=== PATIENT | male | born 1960 | race Caucasian/White ===

== ENCOUNTER → 2024-02-24 06:34 | Outpatient (REF) | payer BC, SELFPAY ==
[2024-02-24 13:40] LABS: Free T4 0.74 ng/dl (0.78-2.19)
== END ==
LOC: REG 06:34
PROVIDERS: FAMILY PHYSICIAN Family Medicine
DX: Z92.3 Personal history of irradiation (principal)
CPT/HCPCS: 36415; 84439

== ENCOUNTER → 2024-04-23 16:39 | Outpatient (REF) | payer BC, SELFPAY ==
[2024-04-23 18:22] LABS: TSH 4.09 uIU/ml (0.47-4.68)
== END ==
LOC: REG 16:39
PROVIDERS: ATTENDING PHYSICIAN Otolaryngology; FAMILY PHYSICIAN Family Medicine
DX: Z92.3 Personal history of irradiation (principal)
CPT/HCPCS: 36415; 84443

== ENCOUNTER 2024-08-11 16:30 | Emergency (ER) | payer BC, SELFPAY ==
[2024-08-11 16:34] VITALS: BP 162/106
[2024-08-11 17:02] LABS: % Basophils 0.6 % (0-2); % Eosinophils 1.5 % (0-6); % Immature Granulocytes 0.1 % (0-0.5); % Lymphocytes 8.4 % (20.5-51.1); % Monocytes 6.9 % (1.7-9.3); % Neutrophils 82.5 % (42.2-75.2); Absolute Basophils 0.1 10^3/uL (0-0.2); Absolute Eosinophils 0.1 10^3/uL (0-0.7); Absolute Lymphocytes 0.7 10^3/uL (1.2-3.4); Absolute Monocytes 0.6 10^3/uL (0.1-0.6); Absolute Neutrophils 7.1 10^3/uL (1.4-6.5); Hematocrit 38.5 % (39.0-52.0); Hemoglobin 13.9 g/dL (13.0-18.0); Mean Corp Hgb Conc. 36.1 g/dL (33.0-37.0); Mean Corpuscular Hgb 31.7 pg (27.0-31.0); Mean Corpuscular Volume 87.9 fL (80.0-94.0); Mean Platelet Volume 10.1 fL (7.4-10.4); Nucleated Red Blood Cells % 0 % (-); Platelet Count 184 10^3/uL (130-400); Red Blood Cell Count 4.38 10^6/uL (4.70-6.10); Red Cell Dist. Width 11.9 % (11.5-14.5); White Blood Cell Count 8.6 10^3/uL (4.8-10.8)
[2024-08-11 17:21] LABS: ALT (SGPT) 21 U/L (0-50); AST (SGOT) 31 U/L (17-59); Albumin 4.5 g/dl (3.5-5.0); Alkaline Phosphatase 111 U/L (38-126); Blood Urea Nitrogen 22 mg/dl (9-20); Calcium 9.4 mg/dl (8.4-10.2); Carbon Dioxide 28 mmol/L (22-30); Chloride 105 mmol/L (98-107); Glucose 107 mg/dl (70-99); Potassium 3.9 mmol/L (3.5-5.1); Sodium 139 mmol/L (135-145); Total Bilirubin 0.6 mg/dl (0.2-1.3); eGFR > 60.00
[2024-08-11 17:23] LABS: Troponin I < 0.012 ng/ml
[2024-08-11 18:13] VITALS: BP 144/98
[2024-08-11 18:17] VITALS: BMI 28.4
[2024-08-11 19:00] VITALS: BP 158/98
--- NOTE | 2024-08-11 19:16 | ED.GENMED ---
History of Present Illness
General
Chief Complaint: Change in Mental Status
Source: patient and spouse
Exam Limitations: none
Time Seen by Provider: 08/11/24 18:53
History of Present Illness
History of Present Illness:
63yoM with a history of head and neck cancer 2 years ago currently in remission presenting with his for evaluation after an 'aura' that he experienced around 1:30 this afternoon while driving. He states he suddenly felt disoriented and not
himself. He was able to pull off to the side of the road. Symptoms lasted about 30 to 60 seconds before resolving. He felt slightly off afterwards. He denies any dizziness, visual changes, headache, chest pain, palpitations, shortness of breath.
Symptoms have completely resolved and he is asymptomatic at this time. He believes he may be dehydrated because he was drinking alcohol yesterday evening.
Past History
Past History
ED Past Medical History: None
ED Past Surgical History: None
Phy Exam
General Physical Exam
General Presentation: well appearing and no apparent distress
General age: appears stated age
General Skin: warm and dry
General Habitus: normal
General Mental: alert
ENT Exam
ENT Exam: normocephalic
Cardiovascular Exam
Cardiovascular Exam: regular rate/rhythm, no edema, no murmur and normal peripheral pulses (2+ radial and DP pulses bilaterally)
Pulmonary Exam
Pulmonary Exam: lungs clear, no respiratory distress, no rales, no crackles and no rhonchi
Neurological Exam
Neurological Exam: alert, CN II-XII intact, no motor deficits, no sensory deficits and speech normal
NIH Stroke Score
Level of Consciousness: 0 - Alert
LOC questions: 0-Answers both correctly
LOC Commands: 0-Performs both correctly
Best Gaze: 0-Normal
Visual Andrade: 0=Normal, no visual loss
Facial palsy: 0=Normal, symmetrical
Motor - Right Arm: 0=No drift 10 seconds
Motor - Left Arm: 0=No drift 10 seconds
Motor - Right Le-No drift 5 seconds
Motor - Left Le-No drift 5 seconds
Limb Ataxia: 0-Absent
Sensation: 0-Normal
Best Language: 0-No aphasia
Dysarthria: 0-Normal
Extinction and Inattention: 0-No abnormality
Total Score:: 0
Lynda Coma Scale
Eye Opening: Spontaneous
Verbal Response: Oriented
Motor Response: Obeys Commands
GCS Total Score: 15
Skin Exam
Skin Exam: normal color and warm/dry
Psychiatric Exam
Psychiatric Exam: normal mood/affect
Course
Orders/Labs/Results
Orders:
Orders
08/11/24 16:42
ECG [Electrocardiogram (*1)] Urgent
Reason for Study: Syncope
EKG- Treatment ONCE
08/11/24 16:51
Complete Blood Count/With Diff Urgent
Comprehensive Metabolic Panel Urgent
Troponin I Urgent
Abnormal Lab Results
08/11/24
16:51
RBC 4.38 L 10^6/uL
(4.70-6.10)
Hct 38.5 L %
(39.0-52.0)
MCH 31.7 H pg
(27.0-31.0)
Absolute Neuts (auto) 7.1 H 10^3/uL
(1.4-6.5)
Absolute Lymphs (auto) 0.7 L 10^3/uL
(1.2-3.4)
Neutrophils % 82.5 H %
(42.2-75.2)
Lymphocytes % 8.4 L %
(20.5-51.1)
BUN 22 H mg/dl
(9-20)
Glucose 107 H mg/dl
(70-99)
08/11/24 16:51
08/11/24 16:51
Vital Signs
Initial and Last Documented VS:
Initial Vital Signs
Temp Pulse Resp BP Pulse Ox
98.7 F 88 16 162/106 98
08/11/24 16:34 08/11/24 16:34 08/11/24 16:34 08/11/24 16:34 08/11/24 16:34
Last Documented Vital Signs
Temp Pulse Resp BP Pulse Ox
98.7 F 82 15 158/98 99
08/11/24 16:34 08/11/24 19:00 08/11/24 19:00 08/11/24 19:00 08/11/24 19:00
MDM/Problems Addressed
Differential Diagnosis Includes:
63yoM here after an 'aura' episode and feeling disoriented 30-60 seconds earlier today. Symptoms resolved and he is asymptomatic on arrival. No headache, visual changes, chest pain, dizziness. He is mildly hypertensive with otherwise normal vital
signs. He is well-appearing in no acute distress. No neurologic deficits appreciated on exam. NIHSS 0. Differential diagnosis includes but is not limited to: Arrhythmia, electrolyte abnormality, dehydration, orthostasis, vasovagal episode, doubt
TIA
Labs and EKG obtained in triage. Labs overall unremarkable including normal electrolytes, renal function, glucose. EKG shows normal sinus rhythm without ischemic changes and troponin within normal limits. Do not feel head CT would be helpful at
this time. Patient in agreement with this. He did have a recent CT head about 4 months ago after a head injury which was reportedly normal. Presentation is nonspecific. No indication for hospitalization at this time. He was advised to follow-up
closely with his PCP and strict ED return precautions discussed. Patient in agreement with plan and was discharged in stable condition.
*EKG
Interpreted by ED Provider?: Yes
EKG Intrepretation Date: 08/11/24
Heart Rate: 85
Rate: normal
Rhythm: sinus
[place]: normal axis
Interval: normal interval
QRS Pattern: normal QRS
Ischemia: no ischemia
*Critical Care Note
Total Time (30-74mins, 75-104mins- exclusive of procedures): Not Applicable
ED Attending Note
-
Portions of this chart may have been created with voice recognition software.� Occasional wrong word or��sound alike� substitutions may have occurred due to the inherent limitations of voice recognition software.
Discharge Plan
Departure
Patient Disposition: Home (Routine Discharge)
Date of Disposition: 08/11/24
Time of Disposition: 19:18
Patient with high blood pressure during this ER visit?: Yes
Discharge Problem:
Transient disorientation
Instructions: Altered Mental Status (DC)
Prescriptions:
No Action
doxycycline hyclate 100 MG capsule
100 mg PO Q12 Qty: 20 0RF
Referrals:
Sean Sweet MD [Family Provider] -
Activity Restrictions/Additional Instructions:
Please call your family doctor on Tuesday to schedule a follow-up appointment. Return to the ER immediately with any new or worsening symptoms.
Interventions
Interventions:
*Risk Screen - Suicide Last Done: 08/11/24 18:17
*General Assessment Last Done: 08/11/24 18:17
*Neglect/Abuse Screening Last Done: 08/11/24 18:17
*ED- Fall Risk Assessment Last Done: 08/11/24 18:17
*ED COVID-19 Vaccine History Last Done: 08/11/24 18:17
*Nursing Disposition Last Done: 08/11/24 19:25
ED- Pulmonary Assessment Last Done: 08/11/24 18:17
ED- Neurological Assessment Last Done: 08/11/24 18:17
ED- Cardiac Assessment Last Done: 08/11/24 18:17
ED Swallowing Screen Last Done: 08/11/24 19:24
Discharge Date and Time
Discharge Date/Time: 08/11/24 19:26
Print Language: CITIZEN OF [place]
== END 2024-08-11 19:26 | disposition home or self-care (01) ==
LOC: EMR 16:30
PROVIDERS: Emergency Medicine; EMERGENCY PHYSICIAN Emergency Medicine; FAMILY PHYSICIAN Family Medicine
DX: R41.0 Disorientation, unspecified (principal); Z85.89 Personal history of malignant neoplasm of other organs and systems
CPT/HCPCS: 99284; 80053; 84484; 85025; 93005

== ENCOUNTER → 2024-08-14 06:24 | Outpatient (REF) | payer BC, SELFPAY ==
[2024-08-14 07:47] LABS: ALT (SGPT) 20 U/L (0-50); AST (SGOT) 27 U/L (17-59); Albumin 4.4 g/dl (3.5-5.0); Alkaline Phosphatase 95 U/L (38-126); Blood Urea Nitrogen 19 mg/dl (9-20); Calcium 9.3 mg/dl (8.4-10.2); Carbon Dioxide 27 mmol/L (22-30); Chloride 105 mmol/L (98-107); Glucose 105 mg/dl (70-99); HDL Cholesterol 73 mg/dl; LDL Cholesterol, Calculated 138 mg/dl; Potassium 4.4 mmol/L (3.5-5.1); Sodium 139 mmol/L (135-145); Total Bilirubin 0.6 mg/dl (0.2-1.3); Total Cholesterol 222 mg/dl (50-199); Triglyceride 56 mg/dl (10-149); Very Low Density Lipoprotein 11 mg/dl (0-30); eGFR > 60.00
[2024-08-14 08:09] LABS: PSA, Total - Screen 5.97 ng/ml (0.0-4.0); TSH Reflex To Free T4 4.46 uIU/ml (0.47-4.68)
[2024-08-14 08:19] LABS: Erythrocyte Sed Rate 7 mm/hour (0-20)
[2024-08-14 08:27] LABS: Hepatitis C Antibody Negative (Negative)
== END ==
LOC: REG 06:24
PROVIDERS: ATTENDING PHYSICIAN Family Medicine
DX: R41.82 Altered mental status, unspecified (principal); Z12.5 Encounter for screening for malignant neoplasm of prostate
CPT/HCPCS: 36415; 80053; 80061; 84443; 85652; 86803; G0103

== ENCOUNTER → 2024-08-17 13:44 | Outpatient (REF) | payer BC, SELFPAY | LOC: HWRAD 13:44 | PROVIDERS: ATTENDING PHYSICIAN Family Medicine | DX: I63.9 Cerebral infarction, unspecified (principal) | CPT/HCPCS: 93880 ==

== ENCOUNTER 2024-08-19 02:29 | Observation (INO) | payer BC, SELFPAY ==
[2024-08-18 22:27] VITALS: BMI 29.1
[2024-08-18 22:29] VITALS: BP 165/107
[2024-08-18 22:44] LABS: Glucose - Point of Care 130 mg/dl (70-99)
[2024-08-18 22:52] LABS: % Basophils 0.7 % (0-2); % Eosinophils 5.7 % (0-6); % Immature Granulocytes 0.2 % (0-0.5); % Lymphocytes 19.9 % (20.5-51.1); % Neutrophils 63.5 % (42.2-75.2); Absolute Eosinophils 0.3 10^3/uL (0-0.7); Absolute Lymphocytes 1.1 10^3/uL (1.2-3.4); Absolute Monocytes 0.5 10^3/uL (0.1-0.6); Absolute Neutrophils 3.4 10^3/uL (1.4-6.5); Hematocrit 39.2 % (39.0-52.0); Hemoglobin 13.7 g/dL (13.0-18.0); Mean Corp Hgb Conc. 34.9 g/dL (33.0-37.0); Mean Corpuscular Hgb 31.4 pg (27.0-31.0); Mean Corpuscular Volume 89.9 fL (80.0-94.0); Nucleated Red Blood Cells % 0 % (-); Platelet Count 179 10^3/uL (130-400); Red Blood Cell Count 4.36 10^6/uL (4.70-6.10); Red Cell Dist. Width 11.9 % (11.5-14.5); White Blood Cell Count 5.4 10^3/uL (4.8-10.8)
[2024-08-18 23:03] LABS: INR 1.01; PT 13.6 Sec (11.4-14.6)
[2024-08-18 23:04] LABS: APTT 29.4 Sec (23.4-35.0)
[2024-08-18 23:06] LABS: ALT (SGPT) 21 U/L (0-50); AST (SGOT) 28 U/L (17-59); Albumin 4.2 g/dl (3.5-5.0); Alkaline Phosphatase 110 U/L (38-126); Blood Urea Nitrogen 17 mg/dl (9-20); Calcium 9.5 mg/dl (8.4-10.2); Carbon Dioxide 30 mmol/L (22-30); Chloride 103 mmol/L (98-107); Estimated Creatinine Clearance 82 ml/min; Glucose 127 mg/dl (70-99); Potassium 3.9 mmol/L (3.5-5.1); Sodium 140 mmol/L (135-145); Total Bilirubin 0.4 mg/dl (0.2-1.3); Total Protein 7.1 g/dl (6.3-8.2); eGFR > 60.00
[2024-08-18 23:15] VITALS: BP 166/105
[2024-08-18 23:16] VITALS: BP 147/99
[2024-08-18 23:18] LABS: Troponin I < 0.012 ng/ml
[2024-08-19] VITALS (8 sets, daily range): BP systolic 127–174; BP diastolic 78–107; PULSE 72–102; BMI 28.5
--- NOTE | 2024-08-19 00:09 | ED.CVA ---
History of Present Illness
<Kelsey Siegel PA-C - Last Filed: 08/19/24 02:48>
General
Chief Complaint: CVA/TIA Symptoms
Source: patient and spouse ( at bedside)
Exam Limitations: none
Time Seen by Provider: 08/18/24 23:31
Nursing documentation reviewed up to this point in time: agreed with
Onset of Stroke Symptoms
Onset of symptoms known: Yes
Date of onset of symptoms: 08/18/24
History of Present Illness
History of Present Illness:
Patient is a 63-year-old male with history SCC of head/neck presenting to the emergency department due to transient numbness in his bilateral upper and lower extremities occurring earlier this evening. Patient states he was sitting down when he had
a gradual onset numbness in his bilateral arms and legs. This lasted about 30 minutes and seemed to resolve on his way to the emergency department. Patient denies any other associated symptoms during this time. At this time�patient states he is
asymptomatic and feels fine.
Patient states that today he was feeling well and denies any confusion, headache, visual disturbances, dysarthria, or ataxia. He denies any recent trauma.
Of note�patient was seen in the ED 1 week ago for transient confusion and discharged. He then had an outpatient MRI this week which showed chronic lacunar infarct in the right basal ganglia. He was started on Plavix and Crestor by his PCP. He had
an carotid ultrasound performed this week and scheduled appointments for cardiac echo as well as cardiology follow-up and neurology follow-up in a few weeks given concern of possible stroke.
Past History
<Kelsey iSegel PA-C - Last Filed: 08/19/24 02:48>
Past History
ED Past Medical History: None
ED Past Surgical History: None
Review of Systems
<Kelsey Siegel PA-C - Last Filed: 08/19/24 02:48>
Review of Systems
Allergies reviewed?: Yes
All Other Systems: ROS reviewed and negative except as documented in HPI and ROS
Phy Exam
<Kelsey Siegel PA-C - Last Filed: 08/19/24 02:48>
Physical Exam
Physical Exam:
Vitals: Hypertensive on arrival, otherwise vital signs stable. Afebrile
General: Patient is well appearing, no acute distress
Skin: Warm and dry, no rashes or lesions
Head: Normocephalic, atraumatic
Eyes: Sclera nonicteric. EOMs intact. Pupils equal round reactive to light bilaterally. No nystagmus.
Throat: Protecting airway
Neck: Normal ROM, no cervical spine tenderness, no meningismus. No JVD
Cardiac: Regular rate and rhythm, no murmurs.
Pulm: Normal respiratory effort, no wheezes, rales, rhonchi heard on exam.
Abdomen: No abdominal tenderness.
Extremities: No evidence of cyanosis or edema. 5 out of 5 strength in bilateral upper and lower extremities.
Neuro: AAOx3. No focal deficits. No facial droop or asymmetry. Fluid speech. Strength intact bilaterally. Sensation appears intact to fine and dull touch.
Psychiatric: Normal affect.
NIH Stroke Score
Level of Consciousness: 0 - Alert
LOC questions: 0-Answers both correctly
LOC Commands: 0-Performs both correctly
Best Gaze: 0-Normal
Visual Andrade: 0=Normal, no visual loss
Facial palsy: 0=Normal, symmetrical
Motor - Right Arm: 0=No drift 10 seconds
Motor - Left Arm: 0=No drift 10 seconds
Motor - Right Le-No drift 5 seconds
Motor - Left Le-No drift 5 seconds
Limb Ataxia: 0-Absent
Sensation: 0-Normal
Best Language: 0-No aphasia
Dysarthria: 0-Normal
Extinction and Inattention: 0-No abnormality
Total Score:: 0
<Adam Henriquez MD - Last Filed: 08/19/24 01:23>
NIH Stroke Score
Total Score:: 0
Course
<Kelsey Siegel PA-C - Last Filed: 08/19/24 02:48>
Orders/Labs/Results
Orders:
Orders
08/18/24 22:34
Electrocardiogram (*1) Urgent
Reason for Study: Other
Other Reason for Exam: Possible Stroke
Bedside Glucose- Treatment ONCE
EKG- Treatment ONCE
08/18/24 22:36
CT Head W/o Iv Contrast Urgent
Comment:
Reason For Exam: numbness, stroke last week
08/18/24 22:42
Complete Blood Count/With Diff Urgent
Comprehensive Metabolic Panel Urgent
PTT Urgent
Prothrombin Time Urgent
Troponin I Urgent
08/19/24 00:32
Aspirin Chewable [Low Strength Aspirin] 324 mg PO NOW STA
08/19/24 02:17
Admit/Transfer Patient As Directed
Co-Sign Provider:
Level of Care: Observation services
Assign to:: Telemetry
Physician / Group: Osman
Diagnosis: Paresthesias
Reason for Telemetry: CVA/TIA
Date to Stop Telemetry: 08/22/24
Time to Stop Telemetry: 11:00
Code Status As Directed
Resuscitation Status: Full Code
PRN Pain Medication Management As Directed
May give lesser potent ordered pain med per pt: Yes
preference::
Protocol:: Medication orders for pain may be administered in a
manner that supports deferring to patient preference
when the pt is:
- Requesting an ordered lesser potent pain medication.
Least to most potent pain medications are defined
as: acetaminophen < NSAID < tramadol < opioids
(morphine, oxycodone, hydromorphone).
- Requesting a lesser dose of the same medication IF
ORDERED.
- Requesting a less intrusive route of administration
if both routes are prescribed by the provider (PO <
IV).
08/19/24 02:24
COVID-19 Antigen Urgent
Source: Nasal Swab
08/22/24 11:00
DC Protocol for Telemetry ONCE
Abnormal Lab Results
08/18/24
22:42
RBC 4.36 L 10^6/uL
(4.70-6.10)
MCH 31.4 H pg
(27.0-31.0)
Absolute Lymphs (auto) 1.1 L 10^3/uL
(1.2-3.4)
Lymphocytes % 19.9 L %
(20.5-51.1)
Monocytes % 10.0 H %
(1.7-9.3)
Glucose 127 H mg/dl
(70-99)
POC Glucose 130 H mg/dl
(70-99)
08/18/24 22:42
08/18/24 22:42
Vital Signs
Initial and Last Documented VS:
Initial Vital Signs
Temp Pulse Resp BP Pulse Ox
97.8 F 92 16 165/107 99
08/18/24 22:29 08/18/24 22:29 08/18/24 22:29 08/18/24 22:29 08/18/24 22:29
Last Documented Vital Signs
Temp Pulse Resp BP Pulse Ox
97.8 F 92 16 165/107 97
08/18/24 22:29 08/18/24 22:29 08/18/24 22:29 08/18/24 22:29 08/18/24 23:25
<Adam Henriquez MD - Last Filed: 08/19/24 01:23>
Orders/Labs/Results
Orders:
Orders
08/18/24 22:34
Electrocardiogram (*1) Urgent
Reason for Study: Other
Other Reason for Exam: Possible Stroke
Bedside Glucose- Treatment ONCE
EKG- Treatment ONCE
08/18/24 22:36
CT Head W/o Iv Contrast Urgent
Comment:
Reason For Exam: numbness, stroke last week
08/18/24 22:42
Complete Blood Count/With Diff Urgent
Comprehensive Metabolic Panel Urgent
PTT Urgent
Prothrombin Time Urgent
Troponin I Urgent
08/19/24 00:32
Aspirin Chewable [Low Strength Aspirin] 324 mg PO NOW STA
08/19/24 02:17
Admit/Transfer Patient As Directed
Co-Sign Provider:
Level of Care: Observation services
Assign to:: Telemetry
Physician / Group: Osman
Diagnosis: Paresthesias
Reason for Telemetry: CVA/TIA
Date to Stop Telemetry: 08/22/24
Time to Stop Telemetry: 11:00
Code Status As Directed
Resuscitation Status: Full Code
PRN Pain Medication Management As Directed
May give lesser potent ordered pain med per pt: Yes
preference::
Protocol:: Medication orders for pain may be administered in a
manner that supports deferring to patient preference
when the pt is:
- Requesting an ordered lesser potent pain medication.
Least to most potent pain medications are defined
as: acetaminophen < NSAID < tramadol < opioids
(morphine, oxycodone, hydromorphone).
- Requesting a lesser dose of the same medication IF
ORDERED.
- Requesting a less intrusive route of administration
if both routes are prescribed by the provider (PO <
IV).
08/19/24 02:24
COVID-19 Antigen Urgent
Source: Nasal Swab
08/22/24 11:00
DC Protocol for Telemetry ONCE
Abnormal Lab Results
08/18/24
22:42
RBC 4.36 L 10^6/uL
(4.70-6.10)
MCH 31.4 H pg
(27.0-31.0)
Absolute Lymphs (auto) 1.1 L 10^3/uL
(1.2-3.4)
Lymphocytes % 19.9 L %
(20.5-51.1)
Monocytes % 10.0 H %
(1.7-9.3)
Glucose 127 H mg/dl
(70-99)
POC Glucose 130 H mg/dl
(70-99)
08/18/24 22:42
08/18/24 22:42
Vital Signs
Initial and Last Documented VS:
Initial Vital Signs
Temp Pulse Resp BP Pulse Ox
97.8 F 92 16 165/107 99
08/18/24 22:29 08/18/24 22:29 08/18/24 22:29 08/18/24 22:29 08/18/24 22:29
Last Documented Vital Signs
Temp Pulse Resp BP Pulse Ox
97.8 F 92 16 165/107 97
08/18/24 22:29 08/18/24 22:29 08/18/24 22:29 08/18/24 22:29 08/18/24 23:25
<Kelsey Siegel PA-C - Last Filed: 08/19/24 02:48>
MDM/Problems Addressed
Differential Diagnosis Includes:
Not limited to: Electrolyte imbalance, cardiac arrhythmia, TIA, CVA, etc.
MDM/Problems Addressed:
63-year-old male with history as documented presenting with transient bilateral upper/lower extremity numbness which has resolved by arrival to emergency department. No associated headache, weakness, dysarthria, ataxia or other neurologic symptoms.
Patient hypertensive on arrival with otherwise stable vital signs. He currently undergoing workup for lacunar infarct noted on outpatient MRI this week following episode of confusion this past week. He also reports recent visual disturbance after
vein ablation. Physical exam as above. Patient alert and oriented with normal neurologic exam. NIH of 0. He has fluid speech and equal strength bilaterally with normal sensation. Normal [id number]. Basic labs were sent off in triage
without any clinically significant abnormalities including an undetectable troponin. EKG shows normal sinus rhythm without cardiac arrhythmia. Findings on head CT tonight consistent with recent MRI showing lacunar infarct.
Symptoms this evening not truly consistent with TIA given they were bilateral and somewhat atypical. However�he has had multiple somewhat transient neurologic findings over the past few weeks and findings of infarction on brain imaging.
Theoretically embolic process would be on differential although I feel this is less likely. However�feel recurrent neurologic episodes warrant admission for further workup, neurology consult and likely cardiac echocardiogram. Patient was recently
started on Plavix and Crestor. Will give full dose aspirin and admit to hospitalist. Patient accepted to hospitalist service in stable condition. Patient seen with attending physician
Chronic conditions affecting care:
N/A
Acute Exacerbation and/or Progression of Chronic Illness:
N/A
<Kelsey Siegel PA-C - Last Filed: 08/19/24 02:48>
*Radiology
Radiology exam reviewed: radiology read reviewed (Lacunar infarct in right basal ganglia)
*Pulse Oximetry
Patient hypoxic: no
*EKG
Interpreted by ED Provider?: Yes
EKG Intrepretation Date: 08/19/24
Interpretation: normal
Comparison EKG: no changes
Heart Rate: 87
Rate: normal
Rhythm: sinus
[place]: normal axis
Interval: long QT
QRS Pattern: normal QRS
Ischemia: no ischemia
*[facility] Interpretation
Rate: normal
Interpretation: normal
Heart Rate: 90
Rhythm: sinus
*Critical Care Note
Total Time (30-74mins, 75-104mins- exclusive of procedures): Not Applicable
Data Reviewed
Review of Other/Old Records Reveals: Radiology Studies (MRI performed outpatient showing lacunar infarct in right basal ganglia (possibly chronic))
Source: previous radiology exam
<Kelsey Siegel PA-C - Last Filed: 08/19/24 02:48>
Patient Management
Discussion with other providers: Hospitalist
Escalation/DeEscalation of care consider admission/obs:
Admit for further evaluation and neurology consult
ED Attending Note
<Kelsey Siegel PA-C - Last Filed: 08/19/24 02:48>
-
Portions of this chart may have been created with voice recognition software.� Occasional wrong word or��sound alike� substitutions may have occurred due to the inherent limitations of voice recognition software.
<Adam Henriquez MD - Last Filed: 08/19/24 01:23>
ED Attending Note
Patient seen and examined by attending physician: Yes
I performed the substantive portion of visit, reviewed & personally made and approve the management plan that is documented in note by myself or BRENDEN.: Yes
ED Attending Note:
Patient presents today with acute onset of numbness and weakness to both arms and both legs while sitting. Lasted about 30 minutes. Currently asymptomatic. However he had a recent episode of confusion, recent visual issues. Recent MRI that was
done for these issues which showed a lacunar infarct. Has been on Plavix. Recent ultrasound unremarkable.
Alert and oriented x 3. Cranial nerves II through XII intact. [id number] normal. No drift. [id number] normal. Light touch intact. No carotid bruit. Regular rate and rhythm no murmur. Warm and dry. Perfusing well. Small cord to the
left medial thigh at the site of previous vein ablation surgery
Cannot put all his symptoms together. Episode of confusion episode of visual issues episode of vague neurologic symptoms. Interestingly these all occurred after he had this vein ablation. Highly doubt patent foramen ovale causing embolic issues.
This most likely would have showed up as a different appearance on MRI. Today's episode not described as a true TIA. However given the constellation of symptoms patient warrants admission and further workup
Discharge Plan
Departure
Patient Disposition: Admit
Date of Disposition: 08/19/24
Time of Disposition: 00:32
Presentation/result/management discussed w/ accepting MD/DO: Hospitalist
Discharge Problem:
Transient neurological symptoms
Interventions
Interventions:
*Risk Screen - Suicide Last Done: 08/18/24 22:29
*General Assessment Last Done: 08/18/24 23:47
*Neglect/Abuse Screening Last Done: 08/18/24 22:29
*ED- Fall Risk Assessment Last Done: 08/18/24 23:26
*ED COVID-19 Vaccine History Last Done: 08/18/24 23:47
ED- Pulmonary Assessment Last Done: 08/18/24 23:25
ED- Neurological Assessment Last Done: 08/18/24 23:24
ED- Cardiac Assessment Last Done: 08/18/24 23:24
ED Swallowing Screen Last Done: 08/18/24 23:23
[2024-08-19] MEDS: LOW STRENGTH ASPIRIN 324 MG PO (00:37)
--- NOTE | 2024-08-19 02:18 | HPS.HSE ---
Family Physician
-
Family Physician: Sean Sweet
Chief Complaint
-
Paresthesias
History of Present Illness
Patient is a 63y M with PMH significant for varicose veins who presents to ED complaining of numbness and tingling in all four extremities this evening. Patient states that he was sitting watching TV when his symptoms began. He denies any focal
weakness, gait disturbance, headache or visual changes. He presented to the ED for further evaluation. His symptoms lasted for about 15 minutes and have since fully resolved. He feels well at present.
Patient states that he had initial symptoms about one week ago. He was driving and became 'disoriented'. He felt odd and 'didn't known what I was doing'. He pulled the car over and his resumed driving. He presented to the ED later that
evening for evaluation - which was essentially unremarkable. He was seen by his PCP on Tuesday and had an MRI that same day.
This showed chronic R basal ganglia infarct and diffuse microvascular ischemic changes. No acute abnormality was identified to account for his episode of disorientation.
Patient had carotid US completed on 08/17 which was also unremarkable.
He states that he is scheduled for Echo and Neuro evaluation later this month.
Patient had LLE vein ablation procedure about one month ago. He has had several of these procedures in the past without adverse effects.
He was newly started on Plavix by his PCP - after his initial symptoms one week ago.
He states he has had 'cold symptoms' for the past few days and has been taking NyQuil for the past 2 days (was taking no meds - OTC or otherwise - last week with initial symptoms).
Medical History
Past Medical History
Past Medical History: Reports Other
Additional Past Medical History:
CVA (seen on MRI)
Left Inguinal Hernia
Past Surgical History: Reports Other
Additional Past Surgical History:
Vein Ablations
Social History
Tobacco: Non-smoker
Alcohol: Occasional
Drug: None
Personal:
Living: With Family
Family History
Family History: Other (Father: CVA)
Allergies / Home Medications
Allergies reflects when Allergies were last updated in [facility].
Home Medications with original date entered in [facility]
Allergy/Medication List:
Allergies
Allergy/AdvReac Type Severity Reaction Status Date / Time
No Known Allergies Allergy Verified 08/18/24 22:33
Home Medications
Plavix 75 mg PO DAILY 08/18/24
Review of Systems
-
History Source: Patient
A 12 point ROS was completed and negative except as noted: Yes
Constitutional: Denies Fever or Chills
Respiratory: Denies Cough or Trouble Breathing
Cardiac: Denies Chest Pain or Palpitations
Abdomen/GI: Denies Abdominal Pain, Nausea, Vomiting or Diarrhea
: Denies Dysuria or Frequency
Musculoskeletal: Denies Joint Pain or Edema
Neurological: Reports Other (Paresthesias); Denies Dizzy or Headache
Psych: Denies Depression or Anxiety
Physical Exam
Vital Signs
Vital Signs
Temp Pulse Resp BP Pulse Ox
97.8 F 92 16 165/107 97
08/18/24 22:29 08/18/24 22:29 08/18/24 22:29 08/18/24 22:29 08/18/24 23:25
Physical Exam
General: Other (63y M in no distress.)
HEENT: Moist mucous membranes and PERRLA
Respiratory: Clear; No Wheezes, Rales or Rhonchi
Cardiac: S1/S2 and Regular Rhythm; No Murmur
GI: Soft, Non Tender, Non Distended and Normal Bowel Sounds
Musculoskeletal: No Clubbing, No Cyanosis and No Edema
Neuro: AO x 3 and Nonfocal/grossly intact
Laboratory Results
-
08/18/24 22:42
08/18/24 22:42
Laboratory Results
PT 13.6 Sec (11.4-14.6) 08/18/24:
INR 1.01 08/18/24:
APTT 29.4 Sec (23.4-35.0) 08/18/24:
Total Bilirubin 0.4 mg/dl (0.2-1.3) 08/18/24:
AST 28 U/L (17-59) 08/18/24:
ALT 21 U/L (0-50) 08/18/24:
Alkaline Phosphatase 110 U/L (38-126) 08/18/24:
Troponin I < 0.012 ng/ml 08/18/24:
Impression/Plan
-
A/P: Patient is a 63y M with PMH significant for cerebrovascular disease identified on recent MRI who presents to ED complaining of diffuse paresthesias.
Paresthesias
- Observe overnight for further evaluation and treatment.
- Recent episodes / symptoms not much consistent with focal neurologic deficits, stroke, etc.
- Paresthesias this evening x 4 extremities does not sound c/w CVA or TIA.
- Monitor for any new / worsening / recurrent symptoms.
- Neurology evaluation for additional recommendations.
- MRI done 08/13 (report scanned in chart). CUS done 08/17.
- Defer any new / repeat studies to Neurology recommendations.
- Continue Plavix and add ASA for now.
Elevated BP without diagnosis of Hypertension
- Suspect that patient does have untreated hypertension based on readings here.
- Monitor overnight and would begin antihypertensive medication if elevations persist.
- Goal of normotension.
DVT Prophylaxis: SCDs
Code Status: Full
[2024-08-19 03:20] LABS: COVID-19 Antigen Negative (Negative)
[2024-08-19 06:18] LABS: Hemoglobin 13.3 g/dL (13.0-18.0); Mean Corpuscular Hgb 31.4 pg (27.0-31.0); Mean Corpuscular Volume 89.8 fL (80.0-94.0); Mean Platelet Volume 10.4 fL (7.4-10.4); Platelet Count 175 10^3/uL (130-400); Red Blood Cell Count 4.23 10^6/uL (4.70-6.10); Red Cell Dist. Width 11.9 % (11.5-14.5); White Blood Cell Count 5.9 10^3/uL (4.8-10.8)
[2024-08-19 06:54] LABS: Blood Urea Nitrogen 13 mg/dl (9-20); Calcium 9.2 mg/dl (8.4-10.2); Carbon Dioxide 27 mmol/L (22-30); Chloride 107 mmol/L (98-107); Estimated Creatinine Clearance 91 ml/min; Glucose 106 mg/dl (70-99); HDL Cholesterol 66 mg/dl; LDL Cholesterol, Calculated 111 mg/dl; Potassium 4.3 mmol/L (3.5-5.1); Sodium 140 mmol/L (135-145); Total Cholesterol 192 mg/dl (50-199); Triglyceride 79 mg/dl (10-149); Very Low Density Lipoprotein 15 mg/dl (0-30); eGFR > 60.00
[2024-08-19 07:09] LABS: TSH Reflex To Free T4 4.37 uIU/ml (0.47-4.68)
[2024-08-19] MEDS: PLAVIX 75 MG PO (08:08)
[2024-08-19] MEDS: LOW STRENGTH ASPIRIN 81 MG PO (08:08)
--- NOTE | 2024-08-19 08:29 | CON.NEURO ---
Consultation
Order
Date of Consultation: 08/19/24
Requesting Provider: Zachraiah Brewer DO
Reason for Consult: CVA/TIA
Neurology Consultation Note.
HPI: This is a 63-year-old man who presented to [facility] on 08/18/2024 with recurrent spells.
The patient experienced an episode of disorientation and feeling disconnected from the world while driving approximately one week ago. He managed to car clerk pullman safely. He had outpatient brain MRI that showed no acute infarcts, chronic ischemic white
matter changes and chronic right basal ganglia infarct. Mr. Velasquez was started on Plavix following MRI findings. He was aspirin na�ve prior the above.
Two days later, he noticed his thought process was not as sharp for about an hour. Yesterday, while watching a movie, he experienced weakness and numbness in his arms and legs, though not severe. The patient denies headaches, migraines, or history
of seizures. He reports seeing lightning-like flashes in the corner of his left eye about a month ago, which was diagnosed as posterior vitreous detachment by his body shop estimator.
During the disorientation episode, the patient denies chest discomfort, palpitations, or sweating. He felt anxious afterward. His speech remained clear, and he was not confused. The disorientation lasted 30 to 60 seconds. He felt cognitively
impaired for a short time on Tuesday, but it improved quickly.
VS: 165/107-174/107, 92, afebrile
EKG:NSR, QTc Int : 447 ms
Labs: Glucose�127, normal sodium, creatinine, WBCs, platelet
CT head wo contrast (08/18/2024)�8.9 mm focal region of asymmetric low attenuation in the anterior limb of the right internal capsule, mild asymmetric low attenuation in the periventricular white matter of the right frontal lobe, and 9.5 mm focal
region of low attenuation in the right external capsule. Diagnostic possibilities are (1) cytotoxic edema from acute or subacute ischemic infarction or (2) asymmetric white matter leukoaraiosis.
Mild Chiari I malformation.
Brain MRI (08/19/2024)�no acute infarcts.
Carotid Doppler ultrasound (08/17/2024)�no hemodynamically significant stenosis.
LDL�111, hemoglobin A1c�5.4.
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
PSH: Neck lymph node resection, LLE vein ablation
SH: , non-smoker,
FH: Father�stroke
All:NKDA
ROS: Constitutional: Negative. Negative for chills, fever and unexpected weight change.
HENT: Negative for ear pain, hearing loss, tinnitus and trouble swallowing.
Eyes: Negative. Negative for photophobia, pain and visual disturbance.
Respiratory: Negative for cough, choking and shortness of breath.
Cardiovascular: Negative for chest pain, palpitations and leg swelling.
Gastrointestinal: Negative for abdominal pain and vomiting.
Endocrine: Negative. Negative for cold intolerance.
Genitourinary: Negative for dysuria, flank pain and urgency.
Musculoskeletal: Negative for back pain, gait problem, neck pain and neck stiffness.
Skin: Negative for rash.
Allergic/Immunologic: Negative. Negative for immunocompromised state.
Neurological: Positive for transient encephalopathy
Psychiatric/Behavioral: Negative for behavioral problems, confusion and hallucinations.
General: Well developed. In no acute distress.
Cardio: Regular rate and rhythm without murmur. Extremities are without cyanosis or edema.
Neuro:
Mental Status: Alert, oriented to person, place, and date. Normal attention and recall. Good fund of knowledge. Follows complex requests across the midline. Comprehension, naming, and repetition intact.
Cranial Nerves: Pupils are equally round and reactive to light. EOMs full. Visual leon full to confrontation. No ptosis. No nystagmus. V1-V3 intact to light touch and pinprick bilaterally, symmetric. Face symmetric. Normal hearing AU. The
palate elevated well. SCMs and traps 5/5. Tongue midline. No dysarthria.
Motor: Normal bulk and tone. No pronator or arm drift. Strength 5/5 throughout. No clonus.
Reflexes: 2+ throughout the upper extremities and knees. 2/2 in AJs. Plantar responses flexor bilaterally.
Sensory: Normal vibration and JPS.
Coordination: No dysmetria or tremor.
Gait: deferred
Assessment and Plan:
I. Probable hypertensive encephalopathy.
II. HTN
III. Chronic right basal ganglia infarct.
-Continue Telemetry monitoring
-Blood pressure goal�normotension
-Switch Plavix to aspirin 81 mg once a day
-LDL goal�less than 100
-DVT prophylaxis.
-Outpatient neurology follow-up
-Case was discussed with patient's spouse
I personally reviewed all radiology and labs along with past medical records pertinent to current medical problems. Total time spent in patient care is 60 minutes.
Thank you for allowing us to participate in the care of this patient. We will continue to follow. Please do not hesitate to contact us with any questions or concerns.
Subjective/Objective
Subjective Data
Date of Service: August 19, 2024
Objective Data
Vital Signs
Temp Pulse Resp BP Pulse Ox
36.6 C 69 9 152/107 97
08/18/24 22:29 08/19/24 06:00 08/19/24 06:00 08/19/24 06:00 08/19/24 05:45
Lab Results
08/19/24 05:58
08/19/24 05:58
PT 13.6 Sec (11.4-14.6) 08/18/24 22:42
INR 1.01 08/18/24 22:42
APTT 29.4 Sec (23.4-35.0) 08/18/24 22:42
Sodium 140 mmol/L (135-145) 08/19/24 05:58
Potassium 4.3 mmol/L (3.5-5.1) 08/19/24 05:58
BUN 13 mg/dl (9-20) 08/19/24 05:58
Glucose 106 mg/dl (70-99) H 08/19/24 05:58
Calcium 9.2 mg/dl (8.4-10.2) 08/19/24 05:58
LDL Cholesterol, Calc 111 mg/dl 08/19/24 05:58
Patient Allergies
No Known Allergies Allergy (Verified 08/18/24 22:33)
Medications
-
Active Medications
Generic Name Dose Route Start Last Admin
Trade Name Freq PRN Reason Stop Dose Admin
Acetaminophen 650 mg 08/19/24 03:01
Acetaminophen 325 Mg Tablet PO 09/16/24 03:00
Q4HPRN PRN
Mild Pain / Temp > 101
Aspirin 81 mg 08/19/24 08:00 08/19/24 08:08
Aspirin 81 Mg Chewable Tablet PO 09/16/24 07:59 81 mg
DAILY QUYEN Administration
Clopidogrel Bisulfate 75 mg 08/19/24 08:00 08/19/24 08:08
Clopidogrel 75 Mg Tablet PO 09/16/24 07:59 75 mg
DAILY QUYEN Administration
Enoxaparin Sodium 40 mg 08/19/24 18:00
Enoxaparin Sodium 40 Mg/0.4 Ml Syringe SC 09/16/24 17:59
QPM QUYEN
Home Medications
�Medication �Instructions �Recorded
Plavix 75 mg PO DAILY 08/18/24
Vital Signs and Labs
-
Vital Signs and Labs:
Vital Signs
Temp Pulse Resp BP Pulse Ox
36.6 C 69 9 152/107 97
08/18/24 22:29 08/19/24 06:00 08/19/24 06:00 08/19/24 06:00 08/19/24 05:45
Lab Results
08/19/24 05:58
08/19/24 05:58
PT 13.6 Sec (11.4-14.6) 08/18/24 22:42
INR 1.01 08/18/24 22:42
APTT 29.4 Sec (23.4-35.0) 08/18/24 22:42
Sodium 140 mmol/L (135-145) 08/19/24 05:58
Potassium 4.3 mmol/L (3.5-5.1) 08/19/24 05:58
BUN 13 mg/dl (9-20) 08/19/24 05:58
Glucose 106 mg/dl (70-99) H 08/19/24 05:58
Calcium 9.2 mg/dl (8.4-10.2) 08/19/24 05:58
LDL Cholesterol, Calc 111 mg/dl 08/19/24 05:58
Medications
-
Medications:
Generic Name Dose Route Start Last Admin
Trade Name Freq PRN Reason Stop Dose Admin
Acetaminophen 650 mg 08/19/24 03:01
Acetaminophen 325 Mg Tablet PO 09/16/24 03:00
Q4HPRN PRN
Mild Pain / Temp > 101
Aspirin 81 mg 08/19/24 08:00 08/19/24 08:08
Aspirin 81 Mg Chewable Tablet PO 09/16/24 07:59 81 mg
DAILY QUYEN Administration
Clopidogrel Bisulfate 75 mg 08/19/24 08:00 08/19/24 08:08
Clopidogrel 75 Mg Tablet PO 09/16/24 07:59 75 mg
DAILY QUYEN Administration
Enoxaparin Sodium 40 mg 08/19/24 18:00
Enoxaparin Sodium 40 Mg/0.4 Ml Syringe SC 09/16/24 17:59
QPM QUYEN
[2024-08-19 09:36] LABS: Glycohemoglobin (HgbA1c) 5.4 % (4.0-5.6)
--- NOTE | 2024-08-19 09:55 | CM ---
Patient seen at bedside in ED. Patient here as OBS and CM reviewed form and provided copies for patient to sign and review. Patient states that he lives in a 2 story home and he is . Patient has no DME at this time. Patient reports that he
has been driving and was independent of ADL's prior to admission. Patient PCP is De. Drake from [place] and he uses the [facility] in [place]. Patient reported no concerns for discharge at this time. CM will continue to follow for discharge
planning needs.
Plan; pending medical work up, home with no needs vs home with VN
--- NOTE | 2024-08-19 13:21 | W.PN.HOSP.TC ---
Addendum entered and electronically signed by Karan Fonseca DO 08/19/24 14:22:
Spoke with Dr. Camargo. Okay to discharge on aspirin. Follow-up as an outpatient.
Recommend outpatient follow-up with PCP and neurology. Start checking blood pressures at home. Continue Procardia XL on discharge.
Original Note:
Today's Communication/Plan
-
Start Procardia
Neurology consult
Assessment / Plan
Assessment / Plan
Gen-AAOx3, NAD
HEENT-NC, AT, anicteric, clear oral mm
Neck-supple
CV-reg, no M, +S1/S2
Lungs-clear B/L
Abd-soft, NT, ND
Ext-no edema
Musculoskeletal-no cyanosis, clubbing
Skin-warm and dry
Neuro-grossly non-focal
Psych-calm, cooperative
Paresthesias -symptoms resolved. Had vague complaints of brain fog recently while driving. Suspect constellation of symptoms may be related to small vessel ischemic disease.
Brain MRI today without acute stroke. Does show changes of chronic ischemic small vessel disease, likely due to undiagnosed and untreated hypertension.
Previous brain MRI dated August 13 mentioned a small suspected chronic lacunar infarct in the right basal ganglia.
Was not previously on prescription medications. Recently saw his primary care doctor last week and based on results of his outpatient brain MRI from August 13, PCP started clopidogrel and rosuvastatin.
Neurology has been consulted.
Patient is scheduled for outpatient echocardiogram this . I see no reason to keep him in the hospital to get echocardiogram tomorrow.
Anticipate discharge home today if okay with neurology.
Elevated blood pressure -likely undiagnosed essential hypertension. Recommend that patient's start checking blood pressures at home. He is agreeable to start antihypertensive therapy. Will start Procardia XL today.
History of metastatic squamous cell cancer head and neck -details unclear.
Full code
Dispo - discharge after seen by neurology.
Updated at the bedside.
Anticipated Discharge: Today
Subjective/Interval History
-
Date of Service: August 19, 2024
Patient seen and examined. No complaints.
Objective Data
-
Labs:
Laboratory Results
08/19/24
05:58
WBC 5.9
Hgb 13.3
Hct 38.0 L
Plt Count 175
Sodium 140
Potassium 4.3
Chloride 107
Carbon Dioxide 27
BUN 13
Creatinine 0.9
Glucose 106 H
Calcium 9.2
Vital Signs:
Vital Signs
Temp Pulse Resp BP Pulse Ox
97.1 F 89 22 174/107 98
08/19/24 12:05 08/19/24 12:05 08/19/24 12:05 08/19/24 12:05 08/19/24 12:05
Review of Systems
-
History Source: Patient
All other systems: Reviewed and negative
[2024-08-19] MEDS: PROCARDIA XL (EXTENDED RELEASE) 30 MG PO (13:36)
--- NOTE | 2024-08-19 14:33 | W.DS.TRANS ---
DC Summary - Anesthesia Resident
-
Discharge Instructions:
Discharge Diagnosis/Procedures Essential hypertension
Diet Low Sodium
Activity As tolerated
Driving Restrictions As prior to admission
Bathing Restrictions None
Instructions:
Stand-Alone Forms:
Changes to Home Medications: No
Discharge Medications:
DC Medications w/original date entered in [facility]
aspirin 81 mg chewable tablet 81 mg PO DAILY #0 tabs 08/19/24
nifedipine 30 mg tablet,extended release 30 mg PO DAILY #30 tabs 08/19/24
rosuvastatin 10 mg tablet 10 mg PO QPM #0 tabs 08/19/24
Home Medication Changes
Pending Results: No
== END 2024-08-19 15:23 | disposition home or self-care (01) ==
LOC: 4 WEST ACU 02:29
PROVIDERS: Emergency Medicine; ADMITTING PHYSICIAN Hospitalist; ATTENDING PHYSICIAN Hospitalist; CONSULT PHYSICIAN Psychiatry & Neurology Neurology; EMERGENCY PHYSICIAN Emergency Medicine; FAMILY PHYSICIAN Family Medicine
DX: I67.4 Hypertensive encephalopathy (principal); R20.0 Anesthesia of skin; I10 Essential (primary) hypertension; R20.2 Paresthesia of skin; H53.9 Unspecified visual disturbance; R41.0 Disorientation, unspecified; R53.1 Weakness; I83.90 Asymptomatic varicose veins of unspecified lower extremity; I67.82 Cerebral ischemia; Z82.3 Family history of stroke; Z86.73 Personal history of transient ischemic attack (TIA), and cerebral infarction without residual deficits; Z85.828 Personal history of other malignant neoplasm of skin; Z11.52 Encounter for screening for COVID-19
CPT/HCPCS: 70450; 70551; 80048; 80053; 80061; 82962; 83036; 84443; 84484; 85025; 85027; 85610; 85730; 87811; 93005; 99285; G0378

== ENCOUNTER → 2024-08-23 13:51 | Outpatient (REF) | payer BC, SELFPAY | LOC: HWRCS 13:51 | PROVIDERS: ATTENDING PHYSICIAN Family Medicine | DX: I63.9 Cerebral infarction, unspecified (principal) | CPT/HCPCS: 93306 ==

== ENCOUNTER 2024-10-28 22:01 | Emergency (ER) | payer BC, SELFPAY ==
[2024-10-28 22:03] VITALS: BP 102/72
[2024-10-28 22:27] LABS: % Basophils 0.2 % (0-2); % Immature Granulocytes 0.4 % (0-0.5); % Monocytes 4.8 % (1.7-9.3); % Neutrophils 92.6 % (42.2-75.2); Absolute Lymphocytes 0.2 10^3/uL (1.2-3.4); Absolute Monocytes 0.5 10^3/uL (0.1-0.6); Absolute Neutrophils 10.5 10^3/uL (1.4-6.5); Hematocrit 38.9 % (39.0-52.0); Hemoglobin 13.9 g/dL (13.0-18.0); Mean Corp Hgb Conc. 35.7 g/dL (33.0-37.0); Mean Corpuscular Hgb 31.9 pg (27.0-31.0); Mean Corpuscular Volume 89.2 fL (80.0-94.0); Mean Platelet Volume 10.3 fL (7.4-10.4); Nucleated Red Blood Cells % 0 % (-); Platelet Count 161 10^3/uL (130-400); Red Blood Cell Count 4.36 10^6/uL (4.70-6.10); Red Cell Dist. Width 12.2 % (11.5-14.5); White Blood Cell Count 11.3 10^3/uL (4.8-10.8)
[2024-10-28 23:06] LABS: ALT (SGPT) 26 U/L (0-50); AST (SGOT) 33 U/L (17-59); Albumin 4.2 g/dl (3.5-5.0); Alkaline Phosphatase 74 U/L (38-126); Blood Urea Nitrogen 19 mg/dl (9-20); Calcium 8.9 mg/dl (8.4-10.2); Carbon Dioxide 21 mmol/L (22-30); Chloride 103 mmol/L (98-107); Glucose 138 mg/dl (70-99); Lipase 51 U/L (23-300); Potassium 3.9 mmol/L (3.5-5.1); Sodium 132 mmol/L (135-145); Total Bilirubin 0.8 mg/dl (0.2-1.3); Total Protein 6.9 g/dl (6.3-8.2); eGFR > 60.00
--- NOTE | 2024-10-29 | ED.GENMED ---
History of Present Illness
General
Chief Complaint: Abdominal Pain
Time Seen by Provider: 10/28/24 23:14
History of Present Illness
History of Present Illness:
63-year-old male presents to the emergency department for evaluation of nausea and generalized weakness beginning this morning. States that overnight last night he felt constipated after having a bowel movement had several watery stools. He
continued to have abnormal symptoms this morning prompting him to self-induced vomiting. Since that time is felt abnormal, denies any abdominal pain, chest pain, or shortness of breath at this time. No recent medication changes. No night sweats
Past History
Past History
ED Past Medical History: None
ED Past Surgical History: None
Review of Systems
Review of Systems
Allergies reviewed?: Yes
All Other Systems: ROS reviewed and negative except as documented in HPI and ROS
Phy Exam
Physical Exam
Physical Exam:
GEN: Well appearing, NAD, WDWN
HEENT: Oral mucosa moist, no scleral icterus
Cardiac: Regular rate. And rhythm, no murmur
Lung: No respiratory distress, no tachypnea, lungs clear to auscultation
abdomen: Soft, grossly nontender, negative Albrecht
MSK: No gross deformity or injuries
Skin: Good color, no pallor or jaundice, no rashes
Neuro: AO x3, moves all extremities freely
Psych: Calm, cooperative
Course
Orders/Labs/Results
Orders:
Orders
10/28/24 22:09
Electrocardiogram (*1) Urgent
Reason for Study: Abdominal Pain
EKG- Treatment ONCE
10/28/24 22:18
Complete Blood Count/With Diff Urgent
Comprehensive Metabolic Panel Urgent
Lipase Urgent
10/29/24 00:00
0.9% Sodium Chloride 1000 ml [Nss] 1,000 ml IV BOLUS
10/29/24 00:11
Ondansetron Injectable [Zofran] 4 mg .ROUTE .STK-MED ONE
10/29/24 00:13
Ondansetron Injectable [Zofran] 4 mg IV NOW STA
10/29/24 00:31
CT Abd/Pel (IV only)-DH only Urgent
Comment:
Reason For Exam: nausea
Abnormal Lab Results
10/28/24
22:18
WBC 11.3 H 10^3/uL
(4.8-10.8)
RBC 4.36 L 10^6/uL
(4.70-6.10)
Hct 38.9 L %
(39.0-52.0)
MCH 31.9 H pg
(27.0-31.0)
Absolute Neuts (auto) 10.5 H 10^3/uL
(1.4-6.5)
Absolute Lymphs (auto) 0.2 L 10^3/uL
(1.2-3.4)
Neutrophils % 92.6 H %
(42.2-75.2)
Lymphocytes % 2.0 L %
(20.5-51.1)
Sodium 132 L mmol/L
(135-145)
Carbon Dioxide 21 L mmol/L
(22-30)
Glucose 138 H mg/dl
(70-99)
10/28/24 22:18
10/28/24 22:18
Vital Signs
Initial and Last Documented VS:
Initial Vital Signs
Temp Pulse Resp BP Pulse Ox
97.9 F 94 16 102/72 97
10/28/24 22:03 10/28/24 22:03 10/28/24 22:03 10/28/24 22:03 10/28/24 22:03
Last Documented Vital Signs
Temp Pulse Resp BP Pulse Ox
97.9 F 94 16 117/74 97
10/28/24 22:03 10/28/24 22:03 10/28/24 22:03 10/29/24 00:17 10/29/24 00:45
MDM/Problems Addressed
MDM/Problems Addressed:
63-year-old male presents with nausea, brief episodes of vomiting and diarrhea earlier today. He was quite insistent on obtaining a CT scan despite his lack of tenderness thus we sent for imaging which was essentially unremarkable except for mild
enteritis. Labs are reassuring. Patient's symptoms improved with IV hydration in the ED, likely self-limited viral syndrome and supportive care is discussed
*Pulse Oximetry
Patient hypoxic: no
Comment: 97%
*Critical Care Note
Total Time (30-74mins, 75-104mins- exclusive of procedures): Not Applicable
ED Attending Note
-
Portions of this chart may have been created with voice recognition software.� Occasional wrong word or��sound alike� substitutions may have occurred due to the inherent limitations of voice recognition software.
Discharge Plan
Departure
Patient Disposition: Home (Routine Discharge)
Date of Disposition: 10/29/24
Time of Disposition: 02:19
Patient with high blood pressure during this ER visit?: No
Discharge Problem:
Enteritis
Instructions: Viral gastroenteritis in adults
Prescriptions:
No Action
nifedipine 30 mg Tablet Extended Release
30 mg PO DAILY Qty: 30 0RF
aspirin 81 mg Tablet,Chewable
81 mg PO DAILY Qty: 0 0RF
rosuvastatin 10 mg Tablet
10 mg PO QPM Qty: 0 0RF
Referrals:
UNKNOWN - PT DOES,NOT KNOW [Family Provider]
Interventions
Interventions:
*Risk Screen - Suicide Last Done: 10/28/24 22:03
*General Assessment Last Done: 10/28/24 22:03
*Neglect/Abuse Screening Last Done: 10/28/24 22:03
*ED- Fall Risk Assessment Last Done: 10/29/24 00:46
*ED COVID-19 Vaccine History Last Done: 10/29/24 00:46
ZP-Notypo-Qekepbrnze Assessment Last Done: 10/29/24 00:46
Discharge Date and Time
Print Language: [id number]
[2024-10-29] MEDS: NSS 1000 IV (00:12)
[2024-10-29] MEDS: ZOFRAN 4 MG IV (00:13)
[2024-10-29 00:17] VITALS: BP 117/74
== END 2024-10-29 02:32 | disposition home or self-care (01) ==
LOC: EMR 22:01
PROVIDERS: Student in an Organized Health Care Education/Training Program; EMERGENCY PHYSICIAN Student in an Organized Health Care Education/Training Program
DX: K52.9 Noninfective gastroenteritis and colitis, unspecified (principal)
CPT/HCPCS: 96374; 96361; 99284; 74177; 80053; 83690; 85025; 93005; Q9967

== ENCOUNTER → 2024-12-14 06:27 | Outpatient (REF) | payer BC, SELFPAY ==
[2024-12-14 07:33] LABS: ALT (SGPT) 23 U/L (0-50); AST (SGOT) 30 U/L (17-59); Albumin 4.5 g/dl (3.5-5.0); Alkaline Phosphatase 88 U/L (38-126); Blood Urea Nitrogen 17 mg/dl (9-20); Calcium 9.4 mg/dl (8.4-10.2); Carbon Dioxide 28 mmol/L (22-30); Chloride 106 mmol/L (98-107); Glucose 99 mg/dl (70-99); HDL Cholesterol 81 mg/dl; LDL Cholesterol, Calculated 64 mg/dl; Potassium 4.7 mmol/L (3.5-5.1); Sodium 139 mmol/L (135-145); Total Protein 7.5 g/dl (6.3-8.2); Very Low Density Lipoprotein 12 mg/dl (0-30); eGFR > 60.00
[2024-12-14 09:16] LABS: Hepatitis C Antibody Negative (Negative)
== END ==
LOC: REG 06:27
PROVIDERS: ATTENDING PHYSICIAN Family Medicine
DX: R20.2 Paresthesia of skin (principal); I10 Essential (primary) hypertension; Z86.73 Personal history of transient ischemic attack (TIA), and cerebral infarction without residual deficits
CPT/HCPCS: 36415; 80053; 80061; 82550; 86803

== ENCOUNTER → 2025-03-21 06:44 | Outpatient (REF) | payer BC, SELFPAY ==
[2025-03-21 09:23] LABS: PSA, Total - Screen 5.50 ng/ml (0.0-4.0)
== END ==
LOC: REG 06:44
PROVIDERS: ATTENDING PHYSICIAN Family Medicine
DX: R97.20 Elevated prostate specific antigen [PSA] (principal)
CPT/HCPCS: 36415; G0103

== ENCOUNTER → 2025-05-01 14:58 | Outpatient (REF) | payer BC, SELFPAY | LOC: RCS 14:58 | PROVIDERS: ATTENDING PHYSICIAN Internal Medicine Cardiovascular Disease; FAMILY PHYSICIAN Family Medicine | DX: I10 Essential (primary) hypertension (principal); R53.83 Other fatigue | CPT/HCPCS: 93017 ==